=== PATIENT | female | born 1950 | race Caucasian/White ===

== ENCOUNTER 2016-12-05 15:34 | Emergency (ER) | payer MEDICARE, OTHER | END 2016-12-05 18:50 | disposition home or self-care (01) | LOC: FER 15:34 | DX: S62.111A Displaced fracture of triquetrum [cuneiform] bone, right wrist, initial encounter for closed fracture (principal); I10 Essential (primary) hypertension; Z98.890 Other specified postprocedural states; W19.XXXA Unspecified fall, initial encounter; Y92.26 Movie house or cinema as the place of occurrence of the external cause | CPT/HCPCS: 73110; 99283 ==

== ENCOUNTER 2017-01-12 22:14 | Emergency (ER) | payer MEDICARE, OTHER | END 2017-01-13 01:00 | disposition home or self-care (01) | LOC: FER 22:14 | DX: G89.18 Other acute postprocedural pain (principal); M25.531 Pain in right wrist; I10 Essential (primary) hypertension; E78.5 Hyperlipidemia, unspecified; Z98.890 Other specified postprocedural states; Z79.899 Other long term (current) drug therapy | CPT/HCPCS: J1170 ==

== ENCOUNTER 2021-01-19 21:12 | Emergency (ER) | payer MEDICARE, OTHER ==
[~2021-01-19 21:12] MED LIST: ASCORBIC ACID500 MG PO; BUSPIRONE HCL15 MG PO; CARDIZEM CD180 MG PO; COZAAR 25MG TAB25 MG PO; EFFEXOR XR150 MG PO; NORVASC10 MG PO; OMEPRAZOLE40 MG PO; ONE A DAY MVI PO; PERCOCET 5-3251 EACH PO; PRAVACHOL40 MG PO; TIROSINT137 MCG PO; TOPROL XL100 MG PO; TRAZODONE 100M100 MG PO; VITAMIN D31000 UNIT PO; ZOFRAN4 MG SL
[2021-01-19 22:10] LABS: BASOPHIL 0.9 % (0-2); EOSINOPHIL 9.1 % (0-7); HCT 42.2 % (37.0-47.0); HGB 14.5 g/dl (12.5-16.0); LYMPHOCYTE 33.6 % (15-48); MCH 32.7 pg (25.0-31.0); MCHC 34.4 g/dL (32.0-36.0); MCV 95.3 fL (78.0-100.0); MONOCYTE 6.7 % (0-12); MPV 10.6 fL (6.0-9.5); NEUTROPHIL 49.4 % (41-80); NRBC 0; PLT 267 K/uL (150-400); RBC 4.43 M/uL (4.20-5.40); RDW 11.9 % (11.5-14.0); WBC 7.5 K/uL (4.0-10.5)
[2021-01-19 22:14] LABS: INR 3.22 (0.9-1.2); PROTHROMBIN TIME 31.4 SECONDS (11.4-13.6)
[2021-01-19 22:15] LABS: PTT 43.1 SECONDS (22.2-34.7)
[2021-01-19 22:16] LABS: D-DIMER < 0.27 ug/mLFEU (0.00-0.41)
[2021-01-19 22:23] LABS: ALBUMIN 4.3 g/dL (3.4-5.0); BILIRUBIN - TOTAL 0.4 mg/dL (0.2-1.0); BUN/CREAT RATIO (CALC) 17.1 RATIO; CREATININE 0.76 mg/dL (0.51-0.95); GLOBULIN (CALCULATION) 3.9 g/dL; MAGNESIUM 1.7 mg/dL (1.8-2.4); POTASSIUM 4.6 mmol/L (3.5-5.1); TOTAL PROTEIN 8.2 g/dL (6.4-8.2)
[2021-01-19 22:33] LABS: PRO-BNP 514 pg/mL (<125)
== END 2021-01-20 03:10 | disposition home or self-care (01) ==
LOC: FER 21:12
PROVIDERS: Emergency Medicine
DX: I11.0 Hypertensive heart disease with heart failure (principal); I50.9 Heart failure, unspecified; M26.601 Right temporomandibular joint disorder, unspecified; R79.89 Other specified abnormal findings of blood chemistry; I48.91 Unspecified atrial fibrillation; E03.9 Hypothyroidism, unspecified; E78.5 Hyperlipidemia, unspecified; Z79.899 Other long term (current) drug therapy
CPT/HCPCS: 36415; 71045; 80053; 83735; 83880; 84484; 85025; 85379; 85610; 85730; 93005